=== PATIENT | male | born 1965 | race Hispanic/Latino ===

== ENCOUNTER → 2018-11-09 | Outpatient (CLI) | payer OTHER | END | disposition home or self-care (01) | LOC: RAH 11:14 | PROVIDERS: ATTEND Family Medicine | DX: M19.011 Primary osteoarthritis, right shoulder (principal); M89.38 Hypertrophy of bone, other site; M25.811 Other specified joint disorders, right shoulder | CPT/HCPCS: 73221 ==

== ENCOUNTER 2021-04-04 10:09 | Emergency (ER) | payer OTHER ==
[~2021-04-04] VITALS: Ht 170.2 cm; Wt 90.7 kg
[2021-04-04 10:10] VITALS: BP 159/72
== END 2021-04-04 11:26 | disposition home or self-care (01) ==
LOC: EDH 10:09
DX: S62.306A Unspecified fracture of fifth metacarpal bone, right hand, initial encounter for closed fracture (principal); W18.39XA Other fall on same level, initial encounter; Y93.89 Activity, other specified; Y92.89 Other specified places as the place of occurrence of the external cause; Y99.8 Other external cause status
CPT/HCPCS: 29125; 73130

== ENCOUNTER 2024-08-12 09:45 | Emergency (ER) | payer BC, OTHER ==
[~2024-08-12] VITALS: Ht 167.6 cm; Wt 82.6 kg
[2024-08-12 09:48] VITALS: BP 143/80; PULSE 56; RESP 18; TEMP 97.2
--- NOTE | 2024-08-12 10:00 | NUR ---
VISUAL ACUITY= OD 20/20, OS 20/20, OU 20/20
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
[2024-08-12] MEDS: ibuPROFEN 800 MG TAB PO ONE (10:21)
[2024-08-12] MEDS: FLUORESCEIN SODIUM 1 STRIP STRIP OP ONE (10:21)
[2024-08-12] MEDS: TETRACAINE HCL 0.5% 4 ML OPHTH SOLN OP ONE (10:21)
[2024-08-12] MEDS ORDERED: IBUP-2077 PO (10:37)
[2024-08-12] MEDS ORDERED: CIPR2.5D18 OS (10:37)
== END 2024-08-12 10:57 | disposition home or self-care (01) ==
LOC: EDH 09:45
DX: S05.02XA Injury of conjunctiva and corneal abrasion without foreign body, left eye, initial encounter (principal); Z98.890 Other specified postprocedural states; X58.XXXA Exposure to other specified factors, initial encounter; Y93.89 Activity, other specified; Y92.89 Other specified places as the place of occurrence of the external cause; Y99.8 Other external cause status
CPT/HCPCS: 99283

== ENCOUNTER 2025-02-21 14:13 | Emergency (ER) | payer OTHER, BC ==
[~2025-02-21] VITALS: Ht 172.7 cm; Wt 83.9 kg
[~2025-02-21 14:13] MED LIST: CIPR2.5D18 OS; IBUP-2077 PO
[2025-02-21 15:34] LABS: IMMATURE GRANULOCYTE ABSOLUTE 0.06 K/uL (0-1); NUCLEATED RED BLOOD CELLS 0.0 % (0.0-0.19); PLATELET COUNT (AUTO) 140 K/uL (130-400); RED BLOOD CELL COUNT(AUTO) 5.35 MIL/uL (4.50-6.20); RED CELL DISTRIBUTION WIDTH 12.7 % (11.0-15.5); WHITE BLOOD COUNT (AUTO) 11.4 K/uL (4.8-10.8)
[2025-02-21 15:43] LABS: CREATININE 1.0 mg/dL (0.5-1.3); GLOMERULAR FILTR. RATE CALC 87.0 mL/min (>90); GLUCOSE,RANDOM 109.0 mg/dL (70-105); SODIUM SERUM 129.0 mmol/L (136-145); UREA NITROGEN, BLOOD 16.0 mg/dL (7-18)
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
[2025-02-21] MEDS ORDERED: METH-662 PO (16:25)
[2025-02-21] MEDS ORDERED: KETO10TA2 PO (16:25)
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
[2025-02-21 17:21] VITALS: BP 166/72; PULSE 66; RESP 19; TEMP 98; O2SAT 99
== END 2025-02-21 16:45 | disposition home or self-care (01) ==
LOC: EDH 14:13
DX: S16.1XXA Strain of muscle, fascia and tendon at neck level, initial encounter (principal); E86.0 Dehydration; G89.29 Other chronic pain; Z79.899 Other long term (current) drug therapy; V03.99XA Pedestrian with other conveyance injured in collision with car, pick-up truck or van, unspecified whether traffic or nontraffic accident, initial encounter; Y93.89 Activity, other specified; Y92.89 Other specified places as the place of occurrence of the external cause; Y99.8 Other external cause status
CPT/HCPCS: 99285; 70450; 96374; 96375; 80048; 85025; 36415; 72125; 71250; 74176; J1885; J2405; J2270